=== PATIENT | male | born 1950 | race Caucasian/White ===

== ENCOUNTER 2017-07-01 14:35 | Outpatient (CLI) | payer BC | END 2017-07-01 14:36 | disposition home or self-care (01) | LOC: LAB.WCP 14:35 | PROVIDERS: ATTEND Family Medicine | DX: Z78.9 Other specified health status (principal) | CPT/HCPCS: 36415; 86803 ==

== ENCOUNTER 2018-08-20 12:17 | Outpatient (CLI) | payer BC ==
[2018-08-20 13:13] LABS: ALBUMIN/GLOBULIN RATIO 1.6 (1.0-2.2); ALKALINE PHOSPHATASE 32 IU/L (42-121); ALT ALANINE AMINOTRANSFERASE 21 IU/L (10-60); AST ASPARTATE AMINOTRANSFERASE 28 IU/L (10-42); BILIRUBIN,TOTAL 0.8 mg/dL (0.2-1.0); BUN - BLOOD UREA NITROGEN 19 mg/dL (6-20); CALCIUM 8.5 mg/dL (8.5-10.3); CARBON DIOXIDE - CO2 26 mmol/L (21-32); CHLORIDE 104 mmol/L (101-111); CREATININE 0.7 mg/dL (0.6-1.2); GFR - MDRD 112 (>89); GLUCOSE 91 mg/dL (70-100); SODIUM 136 mmol/L (135-145); TOTAL PROTEIN 6.5 g/dL (6.7-8.2)
[2018-08-20 13:27] LABS: BASOPHILS % (AUTO) 1.3 %; EOSINOPHILS # (AUTO) 0.3 10^3/uL (0.0-0.7); EOSINOPHILS % (AUTO) 8.3 %; HGB - HEMOGLOBIN 13.1 g/dL (14.0-18.0); LYMPHOCYTES % (AUTO) 27.1 %; MEAN CORPUSCULAR HEMOGLOBIN 30.2 pg (27.0-31.0); MEAN CORPUSCULAR HGB CONC 34.1 g/dL (32.0-36.0); MEAN CORPUSCULAR VOLUME 88.7 fL (80.0-94.0); MEAN PLATELET VOLUME 8.9 fL (7.4-11.4); MONOCYTES # (AUTO) 0.3 10^3/uL (0.0-1.0); MONOCYTES % (AUTO) 8.9 %; NEUTROPHILS # (AUTO) 1.9 10^3/uL (1.5-6.6); NEUTROPHILS % (AUTO) 54.4 %; PLT - PLATELET COUNT 151 10^3/uL (130-450); RED BLOOD COUNT 4.35 10^6/uL (4.70-6.10); RED CELL DISTRIBUTION WIDTH 13.8 % (12.0-15.0); WHITE BLOOD COUNT 3.6 x10^3/uL (4.8-10.8)
== END 2018-08-20 23:59 | disposition home or self-care (01) ==
LOC: LAB.WCP 12:17
PROVIDERS: ATTEND Family Medicine
DX: I38 Endocarditis, valve unspecified (principal); Z12.5 Encounter for screening for malignant neoplasm of prostate
CPT/HCPCS: 36415; 80053; 84153; 84443; 85025

== ENCOUNTER 2019-10-26 11:12 | Outpatient (CLI) | payer BC ==
[2019-10-26 19:03] LABS: BASOPHILS % (AUTO) 0.2 %; HGB - HEMOGLOBIN 13.2 g/dL (14.0-18.0); LYMPHOCYTES % (AUTO) 10.4 %; MEAN CORPUSCULAR HEMOGLOBIN 30.5 pg (27.0-31.0); MEAN CORPUSCULAR HGB CONC 33.1 g/dL (32.0-36.0); MEAN CORPUSCULAR VOLUME 92.1 fL (80.0-94.0); MEAN PLATELET VOLUME 10.4 fL (7.4-11.4); MONOCYTES # (AUTO) 0.6 10^3/uL (0.0-1.0); MONOCYTES % (AUTO) 6.4 %; NEUTROPHILS # (AUTO) 8.1 10^3/uL (1.5-6.6); NEUTROPHILS % (AUTO) 82.5 %; PLT - PLATELET COUNT 202 10^3/uL (130-450); RED BLOOD COUNT 4.33 10^6/uL (4.70-6.10); RED CELL DISTRIBUTION WIDTH 13.2 % (12.0-15.0); WHITE BLOOD COUNT 9.9 x10^3/uL (4.8-10.8)
[2019-10-26 19:55] LABS: PSA FREE 1.164 ng/mL (0.16-2.81)
[2019-10-26 19:56] LABS: PSA TOTAL 4.007 ng/mL (0.000-2.000)
== END 2019-10-26 23:59 | disposition home or self-care (01) ==
LOC: LAB.WCP 11:12
PROVIDERS: ATTEND Family Medicine
DX: R97.20 Elevated prostate specific antigen [PSA] (principal); D64.9 Anemia, unspecified
CPT/HCPCS: 36415; 84153; 84154; 85025

== ENCOUNTER 2020-06-28 12:43 | Outpatient (CLI) | payer BC | END 2020-06-28 12:44 | disposition home or self-care (01) | LOC: COV 12:43 | PROVIDERS: ATTEND Family Medicine | DX: Z20.828 Contact with and (suspected) exposure to other viral communicable diseases (principal) ==

== ENCOUNTER 2020-08-28 08:00 | Outpatient (CLI) | payer BC ==
[2020-08-28 12:40] LABS: BASOPHILS # (AUTO) 0.1 10^3/uL (0.0-0.1); BASOPHILS % (AUTO) 1.4 %; EOSINOPHILS # (AUTO) 0.3 10^3/uL (0.0-0.7); HGB - HEMOGLOBIN 13.6 g/dL (14.0-18.0); LYMPHOCYTES # (AUTO) 0.9 10^3/uL (1.5-3.5); MEAN CORPUSCULAR HEMOGLOBIN 30.1 pg (27.0-31.0); MEAN CORPUSCULAR HGB CONC 32.2 g/dL (32.0-36.0); MEAN CORPUSCULAR VOLUME 93.6 fL (80.0-94.0); MEAN PLATELET VOLUME 10.4 fL (7.4-11.4); MONOCYTES # (AUTO) 0.3 10^3/uL (0.0-1.0); MONOCYTES % (AUTO) 6.8 %; NEUTROPHILS # (AUTO) 2.7 10^3/uL (1.5-6.6); NEUTROPHILS % (AUTO) 64.6 %; PLT - PLATELET COUNT 173 10^3/uL (130-450); RED BLOOD COUNT 4.52 10^6/uL (4.70-6.10); RED CELL DISTRIBUTION WIDTH 13.2 % (12.0-15.0); WHITE BLOOD COUNT 4.1 x10^3/uL (4.8-10.8)
[2020-08-28 13:19] LABS: PSA FREE 0.53 ng/mL (0.16-2.81)
[2020-08-28 13:20] LABS: ALBUMIN 4.3 g/dL (3.2-5.5); ALBUMIN/GLOBULIN RATIO 1.7 (1.0-2.2); ALKALINE PHOSPHATASE 30 IU/L (42-121); ALT ALANINE AMINOTRANSFERASE 22 IU/L (10-60); AST ASPARTATE AMINOTRANSFERASE 24 IU/L (10-42); BILIRUBIN,TOTAL 0.7 mg/dL (0.2-1.0); BUN - BLOOD UREA NITROGEN 25 mg/dL (6-20); CALCIUM 9.1 mg/dL (8.5-10.3); CARBON DIOXIDE - CO2 29 mmol/L (21-32); CHLORIDE 102 mmol/L (101-111); CHOL/HDL RATIO 2.2 (<5.0); CHOLESTEROL 200 mg/dL; CREATININE 0.7 mg/dL (0.6-1.2); GLUCOSE 87 mg/dL (70-100); HDL CHOLESTEROL 90 mg/dL; PSA TOTAL 2.67 ng/mL (0.000-2.000); SODIUM 140 mmol/L (135-145); TOTAL PROTEIN 6.9 g/dL (6.7-8.2)
== END 2020-08-28 23:59 | disposition home or self-care (01) ==
LOC: LAB.WCP 08:00
PROVIDERS: ATTEND Nurse Practitioner
DX: Z00.00 Encounter for general adult medical examination without abnormal findings (principal); I10 Essential (primary) hypertension; R97.20 Elevated prostate specific antigen [PSA]
CPT/HCPCS: 36415; 80053; 80061; 83721; 84153; 84154; 84443; 85025

== ENCOUNTER 2021-10-07 08:00 | Outpatient (CLI) | payer BC | END 2021-10-07 23:59 | LOC: LAB 08:00 | PROVIDERS: ATTEND Registered Nurse | DX: N41.9 Inflammatory disease of prostate, unspecified (principal) | CPT/HCPCS: 87086 ==

== ENCOUNTER 2021-10-15 08:39 | Outpatient (CLI) | payer MEDICARE, OTHER ==
[2021-10-15 12:29] LABS: BASOPHILS # (AUTO) 0.1 10^3/uL (0.0-0.1); BASOPHILS % (AUTO) 1.3 %; EOSINOPHILS # (AUTO) 0.3 10^3/uL (0.0-0.7); EOSINOPHILS % (AUTO) 6.6 %; HCT - HEMATOCRIT 41.5 % (42.0-52.0); HGB - HEMOGLOBIN 13.8 g/dL (14.0-18.0); LYMPHOCYTES % (AUTO) 24.5 %; MEAN CORPUSCULAR HEMOGLOBIN 30.1 pg (27.0-31.0); MEAN CORPUSCULAR HGB CONC 33.3 g/dL (32.0-36.0); MEAN CORPUSCULAR VOLUME 90.4 fL (80.0-94.0); MEAN PLATELET VOLUME 10.3 fL (7.4-11.4); MONOCYTES # (AUTO) 0.3 10^3/uL (0.0-1.0); MONOCYTES % (AUTO) 7.3 %; NEUTROPHILS # (AUTO) 2.4 10^3/uL (1.5-6.6); PLT - PLATELET COUNT 177 10^3/uL (130-450); RED BLOOD COUNT 4.59 10^6/uL (4.70-6.10); RED CELL DISTRIBUTION WIDTH 12.9 % (12.0-15.0)
[2021-10-15 12:53] LABS: THYROID STIMULATING HORMONE 1.77 uIU/mL (0.34-5.60)
[2021-10-15 12:58] LABS: % IRON SATURATION 27 % (20-50); ALBUMIN 4.4 g/dL (3.2-5.5); ALBUMIN/GLOBULIN RATIO 1.6 (1.0-2.2); ALKALINE PHOSPHATASE 34 IU/L (42-121); ALT ALANINE AMINOTRANSFERASE 23 IU/L (10-60); AST ASPARTATE AMINOTRANSFERASE 28 IU/L (10-42); BILIRUBIN,TOTAL 0.4 mg/dL (0.2-1.0); BUN - BLOOD UREA NITROGEN 16 mg/dL (6-20); CALCIUM 9.1 mg/dL (8.5-10.3); CARBON DIOXIDE - CO2 29 mmol/L (21-32); CHLORIDE 103 mmol/L (101-111); CREATININE 0.7 mg/dL (0.6-1.2); GFR - MDRD 111 (>89); GLUCOSE 90 mg/dL (70-100); IRON 86 ug/dL (45-182); POTASSIUM 4.5 mmol/L (3.5-5.0); SODIUM 139 mmol/L (135-145); TOTAL IRON BINDING CAPACITY 319 ug/dL (250-450); TOTAL PROTEIN 7.2 g/dL (6.7-8.2); TRANSFERRIN 228 mg/dL (180-329)
[2021-10-15 12:59] LABS: CHOL/HDL RATIO 2.2 (<5.0); CHOLESTEROL 196 mg/dL; FERRITIN 52.2 ng/mL (23.9-336.2); HDL CHOLESTEROL 90 mg/dL; TRIGLYCERIDES 37 mg/dL
== END 2021-10-15 23:59 | disposition home or self-care (01) ==
LOC: LAB.WCP 08:39
PROVIDERS: ATTEND Family Medicine
DX: D64.9 Anemia, unspecified (principal); I38 Endocarditis, valve unspecified; N41.9 Inflammatory disease of prostate, unspecified
CPT/HCPCS: 36415; 80053; 80061; 82607; 82728; 82746; 83540; 83721; 84443; 84466; 85025; 87086

== ENCOUNTER 2022-11-05 07:11 | Outpatient (CLI) | payer MEDICARE, OTHER ==
[2022-11-05 11:28] LABS: BASOPHILS % (AUTO) 0.9 %; EOSINOPHILS # (AUTO) 0.2 10^3/uL (0.0-0.7); EOSINOPHILS % (AUTO) 5.1 %; HCT - HEMATOCRIT 41.3 % (42.0-52.0); HGB - HEMOGLOBIN 13.4 g/dL (14.0-18.0); LYMPHOCYTES % (AUTO) 22.1 %; MEAN CORPUSCULAR HEMOGLOBIN 29.6 pg (27.0-31.0); MEAN CORPUSCULAR HGB CONC 32.4 g/dL (32.0-36.0); MEAN CORPUSCULAR VOLUME 91.4 fL (80.0-94.0); MEAN PLATELET VOLUME 10.5 fL (7.4-11.4); MONOCYTES # (AUTO) 0.3 10^3/uL (0.0-1.0); MONOCYTES % (AUTO) 7.6 %; NEUTROPHILS # (AUTO) 2.9 10^3/uL (1.5-6.6); NEUTROPHILS % (AUTO) 64.1 %; PLT - PLATELET COUNT 163 10^3/uL (130-450); RED BLOOD COUNT 4.52 10^6/uL (4.70-6.10); RED CELL DISTRIBUTION WIDTH 13.5 % (12.0-15.0); WHITE BLOOD COUNT 4.5 x10^3/uL (4.8-10.8)
[2022-11-05 12:01] LABS: ALBUMIN 4.3 g/dL (3.2-5.5); ALBUMIN/GLOBULIN RATIO 1.7 (1.0-2.2); ALKALINE PHOSPHATASE 40 IU/L (42-121); ALT ALANINE AMINOTRANSFERASE 37 IU/L (10-60); AST ASPARTATE AMINOTRANSFERASE 33 IU/L (10-42); BILIRUBIN,TOTAL 0.9 mg/dL (0.2-1.0); BUN - BLOOD UREA NITROGEN 16 mg/dL (6-20); CALCIUM 9.2 mg/dL (8.5-10.3); CARBON DIOXIDE - CO2 28 mmol/L (21-32); CHLORIDE 100 mmol/L (101-111); CHOL/HDL RATIO 2.2 (<5.0); CHOLESTEROL 192 mg/dL; CREATININE 0.8 mg/dL (0.6-1.2); GFR - MDRD 95 (>89); GLUCOSE 97 mg/dL (70-100); HDL CHOLESTEROL 87 mg/dL; POTASSIUM 4.3 mmol/L (3.5-5.0); SODIUM 138 mmol/L (135-145); TOTAL PROTEIN 6.9 g/dL (6.7-8.2); TRIGLYCERIDES 38 mg/dL
[2022-11-05 12:05] LABS: THYROID STIMULATING HORMONE 1.79 uIU/mL (0.34-5.60)
== END 2022-11-05 07:12 | disposition home or self-care (01) ==
LOC: LAB.N 07:11
PROVIDERS: ATTEND Family Medicine
DX: M54.50 Low back pain, unspecified (principal); D64.9 Anemia, unspecified; M54.16 Radiculopathy, lumbar region; G89.29 Other chronic pain; Z85.820 Personal history of malignant melanoma of skin; Z12.5 Encounter for screening for malignant neoplasm of prostate
CPT/HCPCS: 36415; 80053; 80061; 84443; 85025; G0103; 83721; 84153

== ENCOUNTER 2023-07-28 15:17 | Outpatient (CLI) | payer MEDICARE, OTHER ==
[2023-07-28 18:03] LABS: HCT - HEMATOCRIT 37.5 % (42.0-52.0); HGB - HEMOGLOBIN 12.3 g/dL (14.0-18.0); MEAN CORPUSCULAR HEMOGLOBIN 29.4 pg (27.0-31.0); MEAN CORPUSCULAR HGB CONC 32.8 g/dL (32.0-36.0); MEAN CORPUSCULAR VOLUME 89.7 fL (80.0-94.0); MEAN PLATELET VOLUME 10.6 fL (7.4-11.4); RED BLOOD COUNT 4.18 10^6/uL (4.70-6.10); RED CELL DISTRIBUTION WIDTH 13.2 % (12.0-15.0); WHITE BLOOD COUNT 5.1 x10^3/uL (4.8-10.8)
[2023-07-28 19:00] LABS: THYROID STIMULATING HORMONE 1.69 uIU/mL (0.34-5.60)
[2023-07-28 19:05] LABS: FERRITIN 54.4 ng/mL (23.9-336.2)
== END 2023-07-28 15:18 | disposition home or self-care (01) ==
LOC: LAB.N 15:17
PROVIDERS: ATTEND Family Medicine
DX: R94.31 Abnormal electrocardiogram [ECG] [EKG] (principal); R42 Dizziness and giddiness
CPT/HCPCS: 36415; 82728; 83880; 84443; 85027

== ENCOUNTER 2023-08-26 16:16 | Outpatient (CLI) | payer MEDICARE, OTHER ==
--- NOTE | 2023-08-26 17:20 | XRAY Report ---
PROCEDURE: Foot 3 View LT INDICATIONS: LEFT FOOT PAIN TECHNIQUE: 3 views of the foot were acquired. COMPARISON: 05/01/2023 FINDINGS: Bones: No fractures or dislocations. Small plantar and dorsal calcaneal spurs, similar extent. There is hammertoe deformity at the second and third digits and varus deformity at the fifth MTP joint. No suspicious bony lesions. Soft tissues: No suspicious soft tissue calcifications or masses. IMPRESSION: 1. No acute changes. 2. Hammertoe deformities and enthesophytes are stable. Reviewed by: Miesha Palumbo MD on 08/26/2023 5:19 PM PST Approved by: Miesha Palumbo MD on 08/26/2023 5:19 PM PST Station ID: [id number]
== END 2023-08-26 16:17 | disposition home or self-care (01) ==
LOC: DI 16:16
PROVIDERS: ATTEND Podiatrist
DX: M20.42 Other hammer toe(s) (acquired), left foot (principal); M77.32 Calcaneal spur, left foot; M77.52 Other enthesopathy of left foot and ankle

== ENCOUNTER 2023-09-03 11:45 | Outpatient (CLI) | payer MEDICARE, OTHER ==
[2023-09-03 12:11] LABS: FECAL OCCULT BLOOD (FIT) NEGATIVE (NEGATIVE)
== END 2023-09-03 11:46 | disposition home or self-care (01) ==
LOC: LAB.R 11:45
PROVIDERS: ATTEND Family Medicine
DX: D64.9 Anemia, unspecified (principal)
CPT/HCPCS: 82274

== ENCOUNTER 2023-11-18 09:07 | Outpatient (CLI) | payer MEDICARE, OTHER | END 2023-11-18 09:08 | disposition home or self-care (01) | LOC: DI 09:07 | PROVIDERS: ATTEND Family Medicine | DX: R94.31 Abnormal electrocardiogram [ECG] [EKG] (principal); R42 Dizziness and giddiness | CPT/HCPCS: 93307 ==

== ENCOUNTER 2023-11-26 07:19 | Outpatient (CLI) | payer MEDICARE, OTHER ==
[2023-11-26 12:02] LABS: HGB - HEMOGLOBIN 13.2 g/dL (14.0-18.0); MEAN CORPUSCULAR HEMOGLOBIN 28.9 pg (27.0-31.0); MEAN CORPUSCULAR HGB CONC 31.4 g/dL (32.0-36.0); MEAN CORPUSCULAR VOLUME 91.9 fL (80.0-94.0); MEAN PLATELET VOLUME 10.1 fL (7.4-11.4); RED BLOOD COUNT 4.57 10^6/uL (4.70-6.10); WHITE BLOOD COUNT 3.8 x10^3/uL (4.8-10.8)
[2023-11-26 12:12] LABS: ESTIMATED AVERAGE GLUCOSE 105 mg/dL (70-100); HEMOGLOBIN A1c% 5.3 % (4.27-6.07)
[2023-11-26 12:19] LABS: ALBUMIN 4.2 g/dL (3.2-5.5); ALBUMIN/GLOBULIN RATIO 1.5 (1.0-2.2); ALKALINE PHOSPHATASE 40 IU/L (42-121); ALT ALANINE AMINOTRANSFERASE 19 IU/L (10-60); AST ASPARTATE AMINOTRANSFERASE 25 IU/L (10-42); BILIRUBIN,TOTAL 0.6 mg/dL (0.2-1.0); BUN - BLOOD UREA NITROGEN 18 mg/dL (6-20); CALCIUM 9.4 mg/dL (8.5-10.3); CARBON DIOXIDE - CO2 31 mmol/L (21-32); CHLORIDE 104 mmol/L (101-111); CHOL/HDL RATIO 2.2 (<5.0); CHOLESTEROL 176 mg/dL; CREATININE 0.9 mg/dL (0.6-1.3); GFR - MDRD 83 (>89); GLUCOSE 94 mg/dL (74-104); HDL CHOLESTEROL 80 mg/dL; LDL CHOLESTEROL,CALCULATED 84 mg/dL; LDL/HDL RATIO 1.1 (<3.6); POTASSIUM 4.4 mmol/L (3.5-4.5); SODIUM 138 mmol/L (135-145); TRIGLYCERIDES 61 mg/dL (48-352); VLDL CHOLESTEROL 12 mg/dL
== END 2023-11-26 07:20 | disposition home or self-care (01) ==
LOC: LAB.N 07:19
PROVIDERS: ATTEND Family Medicine
DX: D64.9 Anemia, unspecified (principal); Z13.6 Encounter for screening for cardiovascular disorders; Z12.5 Encounter for screening for malignant neoplasm of prostate
CPT/HCPCS: 36415; 80053; 80061; 83036; 85027; G0103; 83721; 84153

== ENCOUNTER 2023-12-29 09:19 | Outpatient (CLI) | payer MEDICARE, OTHER ==
--- NOTE | 2023-12-29 11:14 | XRAY Report ---
PROCEDURE: Foot 3+V LT (Weight Bearing) INDICATIONS: LEFT FOOT AND ANKLE PAIN TECHNIQUE: 3 views of the foot were acquired. COMPARISON: 08/26/2023 FINDINGS: Bones: Plantar calcaneal enthesopathy. Hammertoe deformities. No displaced fracture or dislocation. Minimal degenerative changes Soft tissues: No suspicious calcifications. IMPRESSION: Minimal degenerative changes. Plantar calcaneal enthesopathy. Hammertoe deformities If there is high concern for further derangement, consider MRI evaluation. Reviewed by: Padilla Love MD on 12/29/2023 11:12 AM PDT Approved by: Padilla Love MD on 12/29/2023 11:12 AM PDT Station ID: [id number]
--- NOTE | 2023-12-29 11:18 | XRAY Report ---
PROCEDURE: Left foot from today INDICATIONS: LEFT FOOT AND ANKLE PAIN TECHNIQUE: 3 views of the ankle were acquired. COMPARISON: None. FINDINGS: Bones: No fractures or dislocations. Ankle mortise is normally aligned. No suspicious bony lesions . Soft tissues: No tibiotalar joint effusion. Achilles tendon appears normal. IMPRESSION: No acute bony abnormality. Reviewed by: Logan Muñiz MD on 12/29/2023 11:17 AM PDT Approved by: Logan Muñiz MD on 12/29/2023 11:17 AM PDT Station ID: [id number]
== END 2023-12-29 09:20 | disposition home or self-care (01) ==
LOC: DI 09:19
PROVIDERS: ATTEND Podiatrist
DX: M19.072 Primary osteoarthritis, left ankle and foot (principal); M77.32 Calcaneal spur, left foot; M20.42 Other hammer toe(s) (acquired), left foot

== ENCOUNTER 2024-02-15 13:20 | Outpatient (CLI) | payer MEDICARE, OTHER | END 2024-02-15 13:21 | disposition home or self-care (01) | LOC: RT 13:20 | PROVIDERS: ATTEND Family Medicine | DX: R06.00 Dyspnea, unspecified (principal) | CPT/HCPCS: 94010; 94729 ==

== ENCOUNTER 2024-04-12 10:58 | Outpatient (CLI) | payer MEDICARE, OTHER | END 2024-04-12 10:59 | disposition home or self-care (01) | LOC: LAB.N 10:58 | PROVIDERS: ATTEND Urology | DX: R97.20 Elevated prostate specific antigen [PSA] (principal) | CPT/HCPCS: 36415; 84153 ==

== ENCOUNTER 2024-04-21 13:00 | Outpatient (CLI) | payer MEDICARE, OTHER ==
[~2024-04-21 13:00] MED LIST: GADOTERATE MEGLUMINE 10 MMOL/20 ML VIAL ONE
[2024-04-21 13:19] LABS: CREATININE 0.8 mg/dL (0.6-1.3)
[2024-04-21] MEDS: GADOTERATE MEGLUMINE 10 MMOL/20 ML VIAL IVP ONE (14:48)
--- NOTE | 2024-04-21 16:59 | MRI Report ---
PROCEDURE: Pelvis W/WO INDICATIONS: ELEVATED PSA CONTRAST: clariscan 16.0 ml TECHNIQUE: Coronal ultra fast SE, axial T1 FSE with fat saturation, 3-plane nonbreath-hold T2 FSE. After the ad ministration of contrast, dynamic axial, delayed axial and coronal ultra fast GE or 2-D spoiled GE wi th fat saturation through the pelvis. Optional diffusion weighted imaging and ADC may be performed. COMPARISON: None. FINDINGS: Image quality: Diffusion weighted and dynamic contrast enhanced images are diagnostic. Prostate: Gland size is 4.3 x 5.0 x 6.3 cm; ellipsoid gland volume is 70 mL. PSA density of 0.065, not suspicious. There is wedge-shaped enhancement and T2 hypointense signal throughout the peripheral zone, without significant restricted diffusion, most consistent with prostatitis. Prostate lesions: Lesion 1: Location: Left posterior transition zone, base, on axial series 5, image 9 and coronal series 6, imag e 17. Size: 1.6 x 1.4 cm cm. T2W signal: Hypointense, nonencapsulated. DWI signal: Markedly hyperintense ADC signal: Markedly hypointense Enhancement: Yes Extracapsular extension: No. No neurovascular involvement. PI-RADS score: 5 Genitourinary system: Bladder wall trabeculation, usually indicating chronic outlet obstruction. Bowel and peritoneum: No pathologic free pelvic fluid. Inferior colon and small bowel loops are nor mal in caliber. Nodes and vessels: No pelvic or inguinal adenopathy by size criteria. Iliac vessels are normal in c aliber. Soft tissues: Small, fat-containing inguinal hernias. Bones: Bone marrow demonstrates normal overall signal. No suspicious bony lesions. IMPRESSION: PI-RADS 5 lesion in the posterior transition zone of the prostate base. No aggressive osseous abnorma lity or pelvic adenopathy by size criteria. Superimposed prostatitis. Reviewed by: Mekhi Castañeda MD on 04/21/2024 4:58 PM PDT Approved by: Mekhi Castañeda MD on 04/21/2024 4:58 PM PDT Station ID: [id number]
== END 2024-04-21 13:01 | disposition home or self-care (01) ==
LOC: DI 13:00
PROVIDERS: ATTEND Urology
DX: R97.20 Elevated prostate specific antigen [PSA] (principal); N40.2 Nodular prostate without lower urinary tract symptoms; N41.9 Inflammatory disease of prostate, unspecified
CPT/HCPCS: 36415; 72197; 82565; A9575

== ENCOUNTER 2024-05-02 08:07 | Day surgery (SDC) | payer MEDICARE, OTHER ==
[2024-05-02] MEDS: LACTATED RINGERS 1,000 ML IV ONE (08:14)
[2024-05-02] MEDS ORDERED: LIDOCAINE-PF 2% 10 ML AMP SUBQ ONE (09:36)
[2024-05-02] MEDS ORDERED: fentaNYL 100 MCG/2 ML VIAL ONE (09:36)
[2024-05-02] MEDS ORDERED: PROPOFOL 500 MG/50 ML 500 MG/50 ML VIAL ONE (09:36)
--- NOTE | 2024-05-02 09:57 | ANESTHESIA ---
Pre-Anesthesia VS, & Labs - Diagnosis elevated PSA - Procedure cysto, truss Vital Signs: Temp Pulse Resp BP Pulse Ox O2 Flow Rate 36.3 C L 61 14 134/73 H 100 05/02/24 08:27 05/02/24 08:27 05/02/24 08:27 05/02/24 08:27 05/02/24 08:27 Height: 5 ft 10.5 in Weight (kg): 79 kg Body Mass Index: 24.6 BMI Classification: Normal - NPO >8 hours Home Medications and Allergies Home Medications: Ambulatory Orders Ferrous Sulfate [Feosol] 325 mg PO DAILY 04/25/24 Lisinopril [Zestril] 10 mg PO DAILY 04/25/24 Metoprolol Succinate [Toprol Xl] 12.5 mg PO DAILY 04/25/24 Multivitamin 1 each PO DAILY 04/25/24 Tamsulosin [Flomax] 0.4 mg PO DAILY 04/25/24 Ferrous Sulfate [Feosol] 325 mg PO DAILY 04/25/24 Lisinopril [Zestril] 10 mg PO DAILY 04/25/24 Metoprolol Succinate [Toprol Xl] 12.5 mg PO DAILY 04/25/24 Multivitamin 1 each PO DAILY 04/25/24 Tamsulosin [Flomax] 0.4 mg PO DAILY 04/25/24 Allergies/Adverse Reactions: Allergies Allergy/AdvReac Type Severity Reaction Status Date / Time Sulfa (Sulfonamide Allergy Rash Verified 05/02/24 08:19 Antibiotics) Anes History & Medical History - Anesthetic History Anesthesia Complications: reports: No previous complications - Medical History Cardiovascular: reports: Hypertension, Murmur, Other Pulmonary: reports: None Gastrointestinal: reports: None Urinary: reports: Benign prostate hypertrophy, Kidney stones Neuro: reports: None Musculoskeletal: reports: Osteoarthritis, Chronic back pain Endocrine/Autoimmune: reports: None Skin: reports: Other Smoking Status: Never smoker Psychosocial: reports: Alcohol (beer a day) - Surgical History General: reports: Colonoscopy Eyes Ears Nose Throat (EENT): reports: Tonsil/Adenoidectomy Dermatologic: reports: Skin cancer surgery Exam General: Alert, Oriented x3 Dental: WNL Mouth Opening: Greater than 4 Fingerbreadths Neck Mobility: Normal Mallampati classification: I Thyromental Distance: greater than 6 cm Respiratory: Lungs clear Cardiovascular: Regular rate Plan Anesthesia Type: Total IV Consent for Procedure(s) Verified and Reviewed: Yes Code Status: Attempt Resuscitation ASA classification: 2-Mild systemic disease Is this case an emergency?: No
[2024-05-02] MEDS ORDERED: lidocaine 1% 20 ML MDV ONE (10:12)
[2024-05-02] MEDS: LIDOCAINE-MPF 1% 30 ML VIAL UR ONE (10:59)
[2024-05-02] MEDS: LACTATED RINGERS 400 ML IV ONE (10:59)
[2024-05-02 11:28] VITALS: BP 115/73; O2SAT 98
--- NOTE | 2024-05-02 11:30 | Discharge Plan ---
Discharge Plan Problem Reviewed?: Yes Disposition: Home, Self Care Condition: Good Diet: Regular Activity Restrictions: No Restrictions Shower Restrictions: No Driving Restrictions: No Instruction Topics: Cystoscopy, Biopsy Ultrasound Transrectal Additional Instructions or Follow Up instructions: You have a followup with Dr Johnson 05/11 at 230pm, please arrive 15mins early No Smoking: If you smoke, Please STOP! Call for help. Follow-up with: Maude Ugarte MD [Primary Care Provider] - Julius Johnson MD [Provider Admit Priv/Credential] -
--- NOTE | 2024-05-02 11:36 | OPERATIVE REPORT ---
Operative Report - General Procedure Date: 05/02/24 Planned Procedure: Flexible Cystoscopy Transrectal Ultrasound Guided prostate biopsy Pre-Op Diagnosis: BPH, elevated PSA Procedure Performed: Flexible Cystoscopy Transrectal Ultrasound Guided prostate biopsy Post Op Diagnosis: BPH, elevated PSA - Procedure Note Primary Surgeon: Alex Anesthesia Provider: GÓMEZ Covarrubias Anesthesia Technique: General LMA Indications: BPH PIRADS 5 lesion in left TZ Findings: 13 samples taken lateral lobe hypertrophy Complications: none - Other Other Information/Narrative: After informed consent was obtained the patient was brought to the OR and laid in the supine position. The patient was then anesthetized per anesthesia protocols. He was prepped and draped. A timeout was performed reconfirming the patient, procedure and laterality. A 16 Croatian flexible cystoscope was advanced per urethra into the bladder. He was noted to have lateral lobe hypertrophy of the prostate. No median lobe. His prostate was about 4 cm in length. There were no masses or lesions or other concerns in the bladder He was then placed in the left lower cubitus position with left side down. A transrectal ultrasound-guided probe was placed per rectum and his prostate was visualized. 5 cc 1% lidocaine was placed at the lateral aspect of the prostate bilaterally. The prostate volume was measured at 66 cc Using 18-gauge biopsy needle we obtained samples of the prostate from the right and left side, the lateral and medial aspects of the base, mid and apex. An extra sample was taken from the left TZ and placed with the left base sample. For a total of 13 samples. These were sent for analysis separately. The probe was slowly removed and no bleeding was identified. The patient tolerated procedure well and was brought to the PACU without further incident. He will follow-up in a few weeks time for pathology discussion
--- NOTE | 2024-05-02 13:15 | ANESTHESIA POST OP EVALUATION ---
Anesthesia Post Eval - Post Anesthesia Eval Vitals: Last Vital Signs Temp 36.2 C L 05/02/24 10:59 Pulse 58 L 05/02/24 11:19 Resp 14 05/02/24 11:19 BP 115/73 05/02/24 11:19 Pulse Ox 98 05/02/24 11:19 O2 Flow Rate CV Function Including HR & BP: Stable Pain Control: Satisfactory Nausea & Vomiting: Negative Mental Status: Baseline Respiratory Status: Airway Patent Hydration Status: Satisfactory Anesthesia Complications: None
== END 2024-05-02 08:08 | disposition home or self-care (01) ==
LOC: SDS 08:07
PROVIDERS: ATTEND Urology
PROC: 0VB07ZX Excision of Prostate, Via Natural or Artificial Opening, Diagnostic (ICD-10-PCS; principal; 2024-05-02 10:15)
DX: R97.20 Elevated prostate specific antigen [PSA] (principal); N40.1 Benign prostatic hyperplasia with lower urinary tract symptoms; N42.9 Disorder of prostate, unspecified
CPT/HCPCS: 55700; 76942; J7120